=== PATIENT | female | born 1985 | race African-American/Black ===

== ENCOUNTER 2017-02-21 21:57 | Emergency (ER) | payer MEDICARE, MEDICAID ==
[2017-02-21] MEDS ORDERED: HYDROmorphone* 1 MG/ML 1 ML SYR IM ONE (22:15)
[2017-02-21] MEDS ORDERED: Vancomycin(*) 1,000 MG in NS 0.9% 250 ML* 250 ML IVPB ONE (22:48)
[2017-02-21 23:16] LABS: Hematocrit 32 % (35-47); Hemoglobin 10.6 g/dl (12.0-16.0); Mean Corpuscular HGB Conc 33 g/dl (31-36); Mean Corpuscular Hemoglobin 29 pg (27-31); Mean Corpuscular Volume 87 fL (80-97); Mean Platelet Volume 8 um3 (7.4-10.4); Red Blood Count 3.71 10^6/ul (4.0-5.4); Red Cell Distribution Width 15 % (10.5-15)
[2017-02-21 23:28] LABS: ALT 23 U/L (7-52); Albumin 3.6 g/dL (3.2-5.2); Alkaline Phosphatase 91 U/L (34-104); BUN/Creatinine Ratio 11.3 (8-20); Blood Urea Nitrogen 8 mg/dL (6-24); CO2 Carbon Dioxide 27 mmol/L (22-32); Calcium 9.1 mg/dL (8.6-10.3); Chloride 98 mmol/L (101-111); EGFR African American 123.5 (>60); Globulin 4.6 g/dL (2-4); Glucose 108 mg/dL (70-100); Sodium 132 mmol/L (133-145); Total Protein 8.2 g/dL (6.4-8.9)
[2017-02-21 23:31] LABS: Troponin I 0.01 ng/mL (<0.04)
[2017-02-21] MEDS: NS 0.9% 1000 ML* 2,000 ML IV ONE (23:37)
[2017-02-21] MEDS ORDERED: Iohexol 300* (CONTRAST) 10 ML SDV IV ONE (23:50)
[2017-02-22] MEDS ORDERED: HYDROmorphone* 1 MG/ML 1 ML SYR IV ONE ×2 (01:51→02:43)
[2017-02-22] MEDS ORDERED: LORazepam INJ* 2 MG/ML 1 ML VIAL IV PUSH ONE (02:43)
[2017-02-22 03:56] LABS: C Reactive Protein 64.83 mg/L (< 5.00)
--- NOTE | 2017-02-22 04:02 | ED ---
Venecia Mendez Rebecca, scribed for Jamila Granger MD on 02/21/17 at 2335 . Skin Complaint - HPI Summary HPI Summary: Pt is a 31 y/o F who presents to ED c/o an abscess on the L side of the neck secondary to heroin injection. Repotrs she injected into her neck 1.5 weeks ago and the abscess began shortly thereafter. It began significantly smaller and has worsened since onset. Associated pain is currently severe, ranked 8/10 and is discrete to the neck. Sx aggravated and alleviated by nothing, unchanged by Ibuprofen and hot compresses. Denies any other symptoms. Reports attempting to drain it with a needle last night and draining some fluid from it. Was evaluated by [facility] ED last night for similar symptoms. - History of Current Complaint Chief Complaint: EDRashSkinAbscess Time Seen by Provider: 02/21/17 22:45 Stated Complaint: ABSCESS ON NECK Hx Obtained From: Patient Hx Last Menstrual Period: 3 weeks ago Onset/Duration: Started Weeks Ago - 1.5 weeks ago, Still Present Skin Exposure Onset/Duration: Weeks Ago - 1.5 weeks ago Timing: Constant Onset Severity: Moderate Current Severity: Severe Pain Intensity: 8 Pain Scale Used: 0-10 Numeric Skin Location: Neck - L side Character: Raised Aggravating Symptom(s): Nothing Alleviating Symptom(s): Nothing Associated Signs & Symptoms: Negative - Allergy/Home Medications Allergies/Adverse Reactions: Allergies Allergy/AdvReac Type Severity Reaction Status Date / Time Aspirin Allergy Severe Hives Verified 02/21/17 23:30 Garlic Allergy Severe Hives Verified 02/21/17 23:30 PMH/Surg Hx/FS Hx/Imm Hx Endocrine/Hematology History: Denies: Hx Diabetes, Hx Thyroid Disease Cardiovascular History: Reports: Hx Hypertension Respiratory History: Reports: Hx Asthma Denies: Hx Chronic Obstructive Pulmonary Disease (COPD) GI History: Denies: Hx Ulcer Psychiatric History: Reports: Hx of Violent Episodes Against Others Denies: Hx Eating Disorder - Surgical History Surgery Procedure, Year, and Place: TUBAL LIGATION, c section - Immunization History Date of Tetanus Vaccine: unknown Infectious Disease History: No Infectious Disease History: Denies: Hx Hepatitis, Hx Human Immunodeficiency Virus (HIV), History Other Infectious Disease, Traveled Outside the [place] in Last 30 Days - Family History Known Family History: Positive: Hypertension - Social History Alcohol Use: None Substance Use Type: Reports: Heroin, Marijuana Smoking Status (MU): Heavy Every Day Tobacco Smoker Type: Cigarettes Amount Used/How Often: 4 CIG/DAY Review of Systems Constitutional: Negative Eyes: Negative ENT: Negative Cardiovascular: Negative Respiratory: Negative Gastrointestinal: Negative Genitourinary: Negative Musculoskeletal: Negative Positive: Other - Abscess on the L side of the neck Neurological: Negative Psychological: Normal All Other Systems Reviewed And Are Negative: Yes Physical Exam - Summary Physical Exam Summary: General: Well appearing, mild pain distress. Skin: Warm, Dry. 5 inch x 3inch fluctuant mass over the L side of her neck. Eyes: EOMI, PERLA ENT: Pharynx normal, TMs normal Neck: Supple, nontender Respiratory: CTA, breath sounds present, no rhonchi, no wheezes, no rales Cardiovascular: RRR, no murmur, no rub, no gallop Musculoskeletal: HERBERT, No edema Neuro: Sensory/motor intact, A&Ox3, CN intact 2-12 Psych: Affect/mood appropriate Triage Information Reviewed: Yes Vital Signs On Initial Exam: Initial Vitals Temp Pulse Resp BP Pulse Ox 99.3 F 119 18 135/72 100 02/21/17 22:06 02/21/17 22:06 02/21/17 22:06 02/21/17 22:06 02/21/17 22:06 Vital Signs Reviewed: Yes Procedures - Incision and Drainage Site: Neck Anesthesia: Lidocaine Instrument(s): Scalpel Packing: Gauze Diagnostics - Vital Signs Vital Signs Temp Pulse Resp BP Pulse Ox 02/21/17 23:30 99.6 F 106 18 112/73 100 02/21/17 22:21 18 02/21/17 22:06 99.3 F 119 18 135/72 100 - Laboratory Lab Results: Lab Results 02/21/17 02/21/17 02/21/17 Range/Units 23:05 23:05 23:05 WBC 12.0 H (3.5-10.8) 10^3/ul RBC 3.71 L (4.0-5.4) 10^6/ul Hgb 10.6 L (12.0-16.0) g/dl Hct 32 L (35-47) % MCV 87 (80-97) fL MCH 29 (27-31) pg MCHC 33 (31-36) g/dl RDW 15 (10.5-15) % Plt Count 307 (150-450) 10^3/ul MPV 8 (7.4-10.4) um3 Neut % (Auto) 73.0 (38-83) % Lymph % (Auto) 14.8 L (25-47) % [place] % (Auto) 8.3 (1-9) % Eos % (Auto) 3.4 (0-6) % Baso % (Auto) 0.5 (0-2) % Absolute Neuts (auto) 8.8 H (1.5-7.7) 10^3/ul Absolute Lymphs (auto) 1.8 (1.0-4.8) 10^3/ul Absolute Monos (auto) 1.0 H (0-0.8) 10^3/ul Absolute Eos (auto) 0.4 (0-0.6) 10^3/ul Absolute Basos (auto) 0.1 (0-0.2) 10^3/ul Absolute Nucleated RBC 0 10^3/ul Nucleated RBC % 0 INR (Anticoag Therapy) 1.04 (0.89-1.11) APTT 34.6 (26.0-36.3) seconds Sodium 132 L (133-145) mmol/L Potassium Pending Chloride 98 L (101-111) mmol/L Carbon Dioxide 27 (22-32) mmol/L Anion Gap Pending BUN 8 (6-24) mg/dL Creatinine 0.71 (0.51-0.95) mg/dL Est GFR ( Amer) 123.5 (>60) Est GFR (Non-Af Amer) 96.0 (>60) BUN/Creatinine Ratio 11.3 (8-20) Glucose 108 H (70-100) mg/dL Lactic Acid (0.5-2.0) mmol/L Calcium 9.1 (8.6-10.3) mg/dL Total Bilirubin 0.50 (0.2-1.0) mg/dL AST Pending ALT 23 (7-52) U/L Alkaline Phosphatase 91 (34-104) U/L Troponin I 0.01 (<0.04) ng/mL Total Protein 8.2 (6.4-8.9) g/dL Albumin 3.6 (3.2-5.2) g/dL Globulin 4.6 H (2-4) g/dL Albumin/Globulin Ratio 0.8 L (1-3) 04//17 Range/Units 23:05 WBC (3.5-10.8) 10^3/ul RBC (4.0-5.4) 10^6/ul Hgb (12.0-16.0) g/dl Hct (35-47) % MCV (80-97) fL MCH (27-31) pg MCHC (31-36) g/dl RDW (10.5-15) % Plt Count (150-450) 10^3/ul MPV (7.4-10.4) um3 Neut % (Auto) (38-83) % Lymph % (Auto) (25-47) % [place] % (Auto) (1-9) % Eos % (Auto) (0-6) % Baso % (Auto) (0-2) % Absolute Neuts (auto) (1.5-7.7) 10^3/ul Absolute Lymphs (auto) (1.0-4.8) 10^3/ul Absolute Monos (auto) (0-0.8) 10^3/ul Absolute Eos (auto) (0-0.6) 10^3/ul Absolute Basos (auto) (0-0.2) 10^3/ul Absolute Nucleated RBC 10^3/ul Nucleated RBC % INR (Anticoag Therapy) (0.89-1.11) APTT (26.0-36.3) seconds Sodium (133-145) mmol/L Potassium Chloride (101-111) mmol/L Carbon Dioxide (22-32) mmol/L Anion Gap BUN (6-24) mg/dL Creatinine (0.51-0.95) mg/dL Est GFR ( Amer) (>60) Est GFR (Non-Af Amer) (>60) BUN/Creatinine Ratio (8-20) Glucose (70-100) mg/dL Lactic Acid 0.8 (0.5-2.0) mmol/L Calcium (8.6-10.3) mg/dL Total Bilirubin (0.2-1.0) mg/dL AST ALT (7-52) U/L Alkaline Phosphatase (34-104) U/L Troponin I (<0.04) ng/mL Total Protein (6.4-8.9) g/dL Albumin (3.2-5.2) g/dL Globulin (2-4) g/dL Albumin/Globulin Ratio (1-3) Result Diagrams: 02/21/17 23:05 02/21/17 23:05 Lab Statement: Any lab studies that have been ordered have been reviewed, and results considered in the medical decision making process. - CT Neck CT CT Interpretation Completed By: Radiologist - Subcutaneous abscess on the left, as above, along the superficial surface of the sternocleidomastoid. Re-Evaluation - Re-Evaluation First Eval Re-Evaluation Time: 02:46 Change: Worse Comment: Pt reports her back is now painful and is feeling anxious. Second Eval Re-Evaluation Time: 03:56 Change: Improved Comment: After I&D patient continues to c/o back pain from heavy lifting. Will followup with her PCP for treatment. Course/Dx - Course Course Of Treatment: 31 yo female who uses IV drugs with a large abscess to neck which was I and D'd here after CT to make sure it didn't involve any large vessels. Copious drainage from abscess would packed pt will see me at the syringe exchange for packing change, doxy prescribed after iv dose vanco here. Pt had a tough time tolerating the procedure as she suffers with anxiety. Additionally pt has chronic low back pain and hip pain made worse by lifting her morbidly obese friend who was in the hospital for an extended length of time. I am worried a bit about epidural abscess but she does have chronic back and hip pain and she is neurologically intact. If pain persists I will refer her back to ED for possible mri imaging - Diagnoses Provider Diagnoses: Abscess Discharge - Discharge Plan Condition: Stable Disposition: HOME Prescriptions: DOXYcycline CAP(*) [DOXYcycline 100MG CAP(*)] 100 mg PO BID #20 cap Patient Education Materials: Abscess (ED) Referrals: Veronica Garcia DO [Primary Care Provider] - 02/24/17 The documentation as recorded by the Venecia gee Rebecca accurately reflects the service I personally performed and the decisions made by me, Jamila Granger MD.
[2017-02-22 04:14] VITALS: BP 124/86
--- NOTE | 2017-02-22 08:18 | RAD ---
INDICATION: Large painful abscess LEFT neck from injecting heroin. COMPARISON: No relevant prior exams available on the [facility] PACS. TECHNIQUE: Multidetector CT images skull base to lung apices with 50 mL Omnipaque 300 IV contrast. Multiplanar reformation. REPORT: Clear visualized lung apices. Inseparable from the superficial margin of the LEFT sternocleidomastoid muscle there is a 3.4 cm AP by 2.2 cm transverse by 7.1 cm cephalocaudal loculated fluid collection with peripheral enhancement consistent with abscess given the clinical context which extends from the level of the hyoid bone superiorly to the supraclavicular region inferiorly. Overlying dermal and subcutaneous tissue plane edema. No additional loculated abscess collection evident. Normal size lymph nodes are visualized throughout including 0.9 cm short axis LEFT jugulodigastric node.. Negative for lymphadenopathy. Patent bilateral internal jugular veins. Unremarkable carotid bifurcations. Symmetric parapharyngeal fat. Unremarkable pharyngeal mucosal space contours as well as the larynx and visualized subglottic airway. Unremarkable thyroid gland, bilateral submandibular glands, and bilateral parotid glands. Negative for suspicious osseous lesions. Clear visualized paranasal sinuses and mastoid air spaces. IMPRESSION: Inseparable from the superficial margin of the LEFT sternocleidomastoid muscle there is a 3.4 cm AP by 2.2 cm transverse by 7.1 cm cephalocaudal loculated fluid collection with peripheral enhancement consistent with abscess given the clinical context .
--- NOTE | 2017-02-23 10:25 | PN ---
Progress Note - Progress Note Note: MRSA negative. S. Aureus positive. Patient placed on Doxycyline Medication is known to cover s. aureus Nothing further at this time. Eloisa Gramajo PA-C
== END 2017-02-22 04:13 | disposition home or self-care (01) ==
LOC: ED 21:57
DX: L02.91 Cutaneous abscess, unspecified (principal); F17.210 Nicotine dependence, cigarettes, uncomplicated
CPT/HCPCS: 36415; 70491; 80053; 83605; 84484; 85025; 85610; 85730; 86140; 87040; 87070; 87077; 87186; 87205; 87640; 87641; 99284; J1170; J2060; J3370; Q9967

== ENCOUNTER 2017-03-30 10:58 | Emergency (ER) | payer MEDICARE, MEDICAID ==
[2017-03-30 11:31] VITALS: BP 134/86
[2017-03-30] MEDS ORDERED: predniSONE TAB* 10 MG PO ONE (12:35)
[2017-03-30] MEDS ORDERED: diPHENhydraMINE PO* 50 MG PO ONE (12:35)
[2017-03-30] MEDS ORDERED: Albuterol/Ipratropium NEB.SOL* Albuterol 2.5 MG/Ipratropium 0.5 MG 3 ML INH ONE (12:36)
--- NOTE | 2017-03-30 12:41 | ED ---
Allergic Reaction/Systemic - HPI Summary HPI Summary: 32 female presents with complaints of being itchy and breaking out in hives. Patient states she started taking Methadone for heroin addiction 6 days ago and the first dose she took she broke out in hives and a rash. She took benadryl and has been taking it for the past 6 days, which improves her symptoms until the next dose of Methadone. Yesterday her rash and itchiness got worse and she felt as though she had trouble breathing, until she used her nebulizer machine. Trouble breathing has resolved. She denies chest tightness, difficulty breathing and swelling of her throat. Her dose of methadone was increased yesterday. She took her dose of methadone again today. She did not take benadryl today. Was told by her clinic to come to the ER to be evaluated. No other new medications, soaps, lotions detergents. She states she did sit on her sisters couch 1 week ago that has bugs on it but she has not noticed any bug on her or bites. Has not been back there since 6 days ago. Has PMHx of asthma and SVT. Denies nausea/vomiting. - History of Current Complaint Chief Complaint: EDAllergicReaction Time Seen by Provider: 03/30/17 11:31 Hx Obtained From: Patient Hx Last Menstrual Period: 3 weeks ago Onset/Duration: Sudden Onset, Started weeks ago - 1, Still Present Timing: Intermittent Severity Currently: None Pain Intensity: 0 Pain Scale Used: 0-10 Numeric Character: Pruritus, Hives Aggravating Factor(s): Other - methadone Alleviating Factor(s): OTC Meds - benadryl Associated Signs And Symptoms: Positive: Cough Wheezing, Rash - Related Hx Possible Reaction To: Medications - methadone - Allergies/Home Medications Allergies/Adverse Reactions: Allergies Allergy/AdvReac Type Severity Reaction Status Date / Time Aspirin Allergy Severe Hives Verified 02/21/17 23:30 Garlic Allergy Severe Hives Verified 02/21/17 23:30 PMH/Surg Hx/FS Hx/Imm Hx Endocrine/Hematology History: Denies: Hx Diabetes, Hx Thyroid Disease Cardiovascular History: Reports: Hx Hypertension, Hx Supraventricular Ventricular Tachycardia Respiratory History: Reports: Hx Asthma, Hx Seasonal Allergies Denies: Hx Chronic Obstructive Pulmonary Disease (COPD) GI History: Denies: Hx Ulcer History: Denies: Hx Renal Disease Psychiatric History: Reports: Hx of Violent Episodes Against Others Denies: Hx Eating Disorder - Surgical History Surgery Procedure, Year, and Place: TUBAL LIGATION, c section - Immunization History Date of Tetanus Vaccine: unknown Immunizations Up to Date: Yes Infectious Disease History: Denies: Hx Hepatitis, Hx Human Immunodeficiency Virus (HIV), History Other Infectious Disease, Traveled Outside the [place] in Last 30 Days - Family History Known Family History: Positive: Hypertension - Social History Alcohol Use: None Substance Use Type: Reports: Heroin - currently taking methadone , Marijuana Smoking Status (MU): Heavy Every Day Tobacco Smoker Type: Cigarettes Amount Used/How Often: 4 CIG/DAY Review of Systems Constitutional: Negative Eyes: Negative ENT: Negative Cardiovascular: Negative Respiratory: Negative Positive: Other - some wheezng Gastrointestinal: Negative Positive: Rash - hives, pruritis Neurological: Negative All Other Systems Reviewed And Are Negative: Yes Physical Exam Triage Information Reviewed: Yes Vital Signs On Initial Exam: Initial Vitals Temp Pulse Resp BP Pulse Ox 98.0 F 75 20 138/88 100 03/30/17 11:03/30/17 11:03/30/17 11:03/30/17 11:03/30/17 11:09 Vital Signs Reviewed: Yes Appearance: Positive: Well-Appearing, No Pain Distress, Well-Nourished Skin: Positive: Warm, Skin Color Reflects Adequate Perfusion, Dry, Erythema @ - urticaria noted throughout skin exam, patient scratching skin during exam. no discharge or sign of insect bites.. Negative: Cold, Numb Head/Face: Positive: Normal Head/Face Inspection Eyes: Positive: Normal, Conjunctiva Clear ENT: Positive: Normal ENT inspection, Hearing grossly normal, Pharynx normal Neck: Positive: Supple, Nontender, No Lymphadenopathy Respiratory/Lung Sounds: Positive: Clear to Auscultation, Breath Sounds Present , Wheezes - throughout, patient does have asthma, improved after adminstration of duo neb on second examination. Negative: Rales, Rhonchi, Stridor, Tracheal Deviation, Unable to speak in full sentences Cardiovascular: Positive: Normal, RRR, Pulses are Symmetrical in both Upper and Lower Extremities - 2+. Negative: Murmur, Rub, Tachycardia Abdomen Description: Positive: Nontender, Soft Bowel Sounds: Positive: Present Musculoskeletal: Positive: Normal, Strength/ROM Intact Neurological: Positive: Normal, Sensory/Motor Intact, Alert, Oriented to Person Place, Time, CN Intact II-III, Normal Gait Psychiatric: Positive: Normal AVPU Assessment: Alert - [place] Coma Scale Coma Scale Total: 15 Diagnostics - Vital Signs Vital Signs Temp Pulse Resp BP Pulse Ox 03/30/17 11:25 99.5 F 70 14 134/86 99 03/30/17 11:09 98.0 F 75 20 138/88 100 - Laboratory Lab Statement: Any lab studies that have been ordered have been reviewed, and results considered in the medical decision making process. Re-Evaluation - Re-Evaluation First Eval Re-Evaluation Time: 13:30 Change: Improved - patient improved after administration of benadryl and prednisone. also improved wheezing after duoneb. d/c use of methadone, will see clinic nurse tomorrow and discuss other option. continue benadryl and prednisone Allergic Reaction Course/Dx - Course Course Of Treatment: given prednisone and benadryl while in ED. urticaria and pruritis improved. given duoneb due to wheezing on PE. no difficulty breathing or signs of anaphylaxis. continue prednisone as directed due to long half life of methadone and benadryl as needed. discontinue use of Methadone. Follow up with clinic tomorrow to discuss other options. Spoke with Dr Granger since she was here. Return if symptoms worsen, return, or do not improve. Follow up with PCP. Aware of worsening signs and symptoms to watch out for. - Diagnoses Differential Diagnosis/HQI/PQRI: Positive: Local Allergic Reaction, Urticaria Provider Diagnoses: Urticaria, Adverse reaction to methadone - Provider Notifications Discussed Care Of Patient With: Dr Granger Discharge - Discharge Plan Condition: Stable Disposition: HOME Prescriptions: diPHENhydraMINE PO* [Benadryl PO 50 MG CAP*] 50 mg PO Q6H PRN #30 cap PRN Reason: Itching predniSONE TAB* [Deltasone TAB*] 20 mg PO DAILY #15 tab Patient Education Materials: Urticaria (ED) Referrals: Veronica Garcia DO [Primary Care Provider] - Additional Instructions: Discontinue taking Methadone. Follow up with clinic tomorrow to discuss alternative options, as discussed with Dr Granger. Continue taking Benadryl as needed for rash and itching and Prednisone as directed. 1 pill (20mg) for the first 10 days and then half a pill (10mg) for the next 10 days. If symptoms return or worsen please return and seek medical attention promptly.
== END 2017-03-30 14:09 | disposition home or self-care (01) ==
LOC: ED 10:58 → UNDOADMOB 13:06 → MEDTELE 13:06 → ED 14:09
DX: L50.9 Urticaria, unspecified (principal); T40.3X5A Adverse effect of methadone, initial encounter; R05 Cough; R21 Rash and other nonspecific skin eruption; R06.2 Wheezing; F17.210 Nicotine dependence, cigarettes, uncomplicated; Y92.9 Unspecified place or not applicable
CPT/HCPCS: 99282; A9270-GY; J7512

== ENCOUNTER 2017-11-06 19:19 | Emergency (ER) | payer MEDICARE, MEDICAID ==
[2017-11-06 20:20] LABS: Urine Appearance Cloudy; Urine Blood Negative (Negative); Urine Color Yellow; Urine Ketones Negative (Negative); Urine Protein Negative (Negative); Urine Specific Gravity 1.019 (1.010-1.030); Urine Urobilinogen Negative (Negative)
[2017-11-06] MEDS ORDERED: Ondansetron INJ* 2 MG/ML VIAL IV ONE (23:08)
[2017-11-06 23:48] LABS: ABS Basophils 0.1 10^3/ul (0-0.2); ABS Eosinophils 0.2 10^3/ul (0-0.6); ABS Lymphocytes 3.1 10^3/ul (1.0-4.8); ABS Monocytes 0.4 10^3/ul (0-0.8); ABS Neutrophils 3.4 10^3/ul (1.5-7.7); ABS Nucleated RBC 0 10^3/ul; Eosinophil % 2.3 % (0-6); Hematocrit 32 % (35-47); Hemoglobin 10.2 g/dl (12.0-16.0); Lymphocyte % 42.3 % (25-47); Mean Corpuscular HGB Conc 32 g/dl (31-36); Mean Corpuscular Hemoglobin 28 pg (27-31); Mean Corpuscular Volume 87 fL (80-97); Mean Platelet Volume 9 um3 (7.4-10.4); Nucleated Red Blood Cells % 0; Platelet Count 207 10^3/ul (150-450); Red Blood Count 3.66 10^6/ul (4.0-5.4); Red Cell Distribution Width 17 % (10.5-15); White Blood Count 7.2 10^3/ul (3.5-10.8)
[2017-11-07 00:03] LABS: EGFR Non-African American 75.5 (>60)
[2017-11-07] MEDS ORDERED: Iohexol 300* (CONTRAST) 10 ML SDV IV ONE (01:06)
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
[2017-11-07] MEDS ORDERED: Nitrofurantoin Macrocrystals* 100 MG CAP PO ONE (01:56)
[2017-11-07] MEDS ORDERED: Magnesium CITRATE* 300 ML BTL PO ONE (01:57)
[2017-11-07 02:39] VITALS: BP 131/89
--- NOTE | 2017-11-07 07:44 | RAD ---
INDICATION: Right lower quadrant pain, bloating. COMPARISON: Comparison is made with a prior CT of the abdomen and pelvis from June 04, 2014. TECHNIQUE: A CT scan of the abdomen and pelvis was performed with intravenous and oral contrast following intravenous injection of 95 ml of Omnipaque 300 nonionic contrast. Contiguous axial sections were obtained from the lung bases through the symphysis pubis. Images were reconstructed in the coronal and sagittal planes. FINDINGS: The lung bases are clear. No pleural effusion is present. The liver and spleen are normal in size. There are 2 small hypodense lesions present in the superior portion of the left hepatic lobe measuring up to 1.3 cm in size which are unchanged from the prior study suggestive of cysts or hemangiomas. The gallbladder appears contracted. No calcified gallstones are seen. The pancreas appears to be within normal limits. The kidneys and adrenal glands are normal in size. No hydronephrosis is seen. No significant focal renal abnormality is seen. The aorta is normal in caliber and demonstrates homogeneous contrast opacification. No significant enlarged retroperitoneal lymph nodes are seen. The stomach, small and large bowel appear nondistended. The appendix is not completely visualized although does not appear enlarged. No inflammatory changes are seen. There is a large amount of stool present throughout the colon. There is no evidence for diverticulitis or colitis. The uterus is anteverted and normal in size. No free intraperitoneal air or fluid is seen. No significant focal osseous abnormality is seen. IMPRESSION: 1. NO EVIDENCE FOR ACUTE FINDING OR CAUSE FOR THE PATIENT'S ABDOMINAL PAIN. 2. FINDINGS SUGGESTIVE OF CONSTIPATION.
--- NOTE | 2017-11-08 10:15 | PN ---
Progress Note - Progress Note Date of Service: 11/06/17 Note: Urine culture grew E. Coli Patient placed on Macrobid prior to discharge. Will await sensitivities Nothing further at this time. Eloisa Gramajo PA-C
== END 2017-11-07 02:39 | disposition home or self-care (01) ==
LOC: ED 19:19
DX: K59.00 Constipation, unspecified (principal); R10.84 Generalized abdominal pain; R11.0 Nausea; F17.210 Nicotine dependence, cigarettes, uncomplicated
CPT/HCPCS: 36415; 74177; 80053; 81003; 81015; 82550; 83605; 83690; 83735; 84702; 85025; 86140; 87077; 87086; 87186; 96374; 99282; A9270-GY; J2405; Q9967

== ENCOUNTER 2018-11-04 12:56 | Emergency (ER) | payer MEDICAID, MEDICARE ==
[2018-11-04 14:53] LABS: ABS Basophils 0 10^3/ul (0-0.2); ABS Eosinophils 0.2 10^3/ul (0-0.6); ABS Monocytes 0.7 10^3/ul (0-0.8); ABS Neutrophils 3.6 10^3/ul (1.5-7.7); ABS Nucleated RBC 0 10^3/ul; Eosinophil % 2.1 %; Hematocrit 31 % (35-47); Hemoglobin 10.3 g/dl (12.0-16.0); Lymphocyte % 40.1 %; Mean Corpuscular HGB Conc 33 g/dl (31-36); Mean Corpuscular Hemoglobin 28 pg (27-31); Mean Corpuscular Volume 86 fL (80-97); Mean Platelet Volume 9.1 fL (7.4-10.4); Nucleated Red Blood Cells % 0; Platelet Count 242 10^3/ul (150-450); Red Blood Count 3.64 10^6/ul (4.00-5.40); Red Cell Distribution Width 18 % (10.5-15); White Blood Count 7.5 10^3/ul (3.5-10.8)
[2018-11-04 15:09] LABS: ALT 8 U/L (7-52); AST 15 U/L (13-39); Albumin 3.9 g/dL (3.2-5.2); Albumin/Globulin Ratio 1.3 (1-3); Alkaline Phosphatase 74 U/L (34-104); Anion Gap 5 mmol/L (2-11); BUN/Creatinine Ratio 15.7 (8-20); Blood Urea Nitrogen 13 mg/dL (6-24); CO2 Carbon Dioxide 27 mmol/L (22-32); Calcium 9.1 mg/dL (8.6-10.3); Chloride 105 mmol/L (101-111); EGFR Non-African American 79.2 (>60); Globulin 3.1 g/dL (2-4); Glucose 80 mg/dL (70-100); Potassium 3.9 mmol/L (3.5-5.0); Sodium 137 mmol/L (135-145)
[2018-11-04 15:13] LABS: HCG Pregnancy < 0.60 mIU/mL
[2018-11-04 15:28] LABS: Magnesium 1.9 mg/dL (1.9-2.7)
[2018-11-04] MEDS ORDERED: NS 0.9% 1000 ML* 1,000 ML IV ONE (15:28)
[2018-11-04] MEDS ORDERED: Ondansetron INJ* 2 MG/ML VIAL IV ONE (15:28)
[2018-11-04] MEDS ORDERED: Morphine VIAL* 4 MG/ML VIAL (1 ml vial) IV ONE ×2 (15:28→17:58)
[2018-11-04] MEDS ORDERED: Iohexol 300* (CONTRAST) 10 ML SDV IV ONE (15:32)
[2018-11-04] MEDS ORDERED: cefTRIAXone VIAL(*) 1,000 MG VIAL IVPB ONE (18:27)
[2018-11-04] MEDS ORDERED: Azithromycin TAB* 250 MG PO ONE (18:30)
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
[2018-11-04] MEDS ORDERED: Sterile Water for Inj* 10 ML ONE (19:18)
[2018-11-04] MEDS ORDERED: Docusate CAP* 100 MG PO ONE (19:48)
[2018-11-04] MEDS ORDERED: metroNIDAZOLE TAB* 250 MG PO ONE (19:48)
[2018-11-04 20:28] VITALS: BP 141/93
== END 2018-11-04 20:12 | disposition home or self-care (01) ==
LOC: MERGE 12:56 → ED 12:56
DX: R10.2 Pelvic and perineal pain (principal); K59.00 Constipation, unspecified; I10 Essential (primary) hypertension; J45.909 Unspecified asthma, uncomplicated; K58.9 Irritable bowel syndrome, unspecified; F17.210 Nicotine dependence, cigarettes, uncomplicated
CPT/HCPCS: 36415; 74018; 74177; 76830; 80053; 83605; 83690; 83735; 84702; 85025; 86140; 87480; 87491; 87510; 87591; 87661; 96361; 96374; 96375; 99282; A9270-GY; J0696; J2270; J2405; Q9967

== ENCOUNTER 2019-01-04 19:28 | Emergency (ER) | payer MEDICARE, OTHER ==
[2019-01-04 19:47] VITALS: BP 123/80
--- NOTE | 2019-01-04 20:35 | UC ---
Respiratory Complaint HPI - HPI Summary HPI Summary: 33-year-old woman a chief complaint of 4 days of upper respiratory tract infection symptoms. She's been wheezing and her albuterol does help some. No fevers. She feels chest congestion. Sputum is yellow. She is a smoker. No chest pain. - History of Current Complaint Chief Complaint: UCGeneralIllness Stated Complaint: THROAT PAIN Time Seen by Provider: 01/04/19 20:16 Hx Last Menstrual Period: [id number] Pain Intensity: 2 - Allergies/Home Medications Allergies/Adverse Reactions: Allergies Allergy/AdvReac Type Severity Reaction Status Date / Time aspirin Allergy Rash Verified 01/04/19 19:48 garlic Allergy Swelling Verified 01/04/19 19:48 methadone Allergy Hives Verified 01/04/19 19:48 Home Medications: Home Medications Triamcinolone 0.1% CREAM(NF) [Kenalog 0.1% Cream (NF)] 1 applic TOPICAL DAILY PRN 01/04/19 [History Confirmed 01/04/19] diPHENhydraMINE PO* [Benadryl PO 50 MG CAP*] 25 mg PO Q6H PRN 01/04/19 [History Confirmed 01/04/19] PMH/Surg Hx/FS Hx/Imm Hx Previously Healthy: Yes Respiratory History: Asthma - Surgical History Surgical History: Yes Surgery Procedure, Year, and Place: TUBAL LIGATION, c section, LEEP - Family History Known Family History: Positive: Hypertension - Social History Alcohol Use: None Substance Use Type: Marijuana, Heroin Substance Use Comment - Amount & Last Used: heroin 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 Smoking Status (MU): Heavy Every Day Tobacco Smoker Type: Cigarettes, eCigarettes Amount Used/How Often: 4 CIG/DAY Household Exposure Type: Cigarettes Review of Systems All Other Systems Reviewed And Are Negative: Yes Constitutional: Positive: Negative Skin: Positive: Negative Eyes: Positive: Negative ENT: Positive: Nasal Discharge Respiratory: Positive: Cough, Other - WHEEZING, SEE HPI Cardiovascular: Positive: Negative Gastrointestinal: Positive: Negative Motor: Positive: Negative Neurovascular: Positive: Negative Musculoskeletal: Positive: Negative Neurological: Positive: Negative Psychological: Positive: Negative Is Patient Immunocompromised?: No Physical Exam Triage Information Reviewed: Yes Appearance: Well-Appearing, No Pain Distress, Well-Nourished Vital Signs: Initial Vital Signs Temp 99.4 F 01/04/19 19:40 Pulse 83 01/04/19 19:40 Resp 16 01/04/19 19:40 BP 123/80 01/04/19 19:40 Pulse Ox 100 01/04/19 19:40 Vital Signs Reviewed: Yes Eye Exam: Normal Eyes: Positive: Conjunctiva Clear ENT: Positive: Pharynx normal, Nasal congestion, TMs normal Neck exam: Normal Neck: Positive: Supple Respiratory: Positive: No respiratory distress, No accessory muscle use, Wheezing Cardiovascular: Positive: RRR Musculoskeletal Exam: Normal Musculoskeletal: Positive: Strength Intact, ROM Intact Neurological Exam: Normal Neurological: Positive: Alert, Muscle Tone Normal Psychological Exam: Normal Psychological: Positive: Age Appropriate Behavior Skin Exam: Normal Respiratory Course/Dx - Differential Dx/Diagnosis Provider Diagnosis: Bronchitis, Asthma Discharge - Sign-Out/Discharge Documenting (check all that apply): Patient Departure All imaging exams completed and their final reports reviewed: No Studies - Discharge Plan Condition: Stable Disposition: HOME Prescriptions: Albuterol 2.5MG/3ML (0.083%)* [Ventolin 2.5 MG/3 ML NEB.BLOSSOM*] 2.5 mg INH Q4H PRN #30 neb.blossom PRN Reason: Wheezing predniSONE TAB* [Deltasone 20 MG TAB*] 40 mg PO DAILY #10 tab Patient Education Materials: Asthma (ED), Acute Bronchitis (ED) Referrals: Jamila Granger MD [Primary Care Provider] - Additional Instructions: FOLLOW UP WITH YOUR DOCTOR IF NOT COMPLETELY IMPROVED. GET RECHECKED FOR ANY WORSENING OF YOUR CONDITION OR QUESTIONS OR CONCERNS. - Billing Disposition and Condition Condition: STABLE Disposition: Home
== END 2019-01-04 20:45 | disposition home or self-care (01) ==
LOC: UCEAST 19:28
DX: J45.909 Unspecified asthma, uncomplicated (principal); F17.210 Nicotine dependence, cigarettes, uncomplicated; Z88.8 Allergy status to other drugs, medicaments and biological substances; Z91.018 Allergy to other foods
CPT/HCPCS: 99212; G0463